=== PATIENT | male | born 1980 | race African-American/Black ===

== ENCOUNTER 2023-03-06 12:38 | Emergency (ER) | payer MEDICAID ==
[~2023-03-06] VITALS: Ht 175.3 cm; Wt 90.7 kg
[2023-03-06] MEDS ORDERED: HALOPERIDOL LACTATE 5 MG/ML VIAL IM ONE (12:45)
--- NOTE | 2023-03-06 12:50 | NUR ---
Patient to ER bed 6 to gown for evaluation. Side rails up. Report given to LIZBET VALENCIA.
--- NOTE | 2023-03-06 12:52 | NUR ---
42 yo/m [place] bus [place] w c/o 05/10 epigastric pain throbbing radiating up, down, to the sides and to back x several weeks intermitent, +n/v/d. pt reports he was seen at another hospital recently and discharged with antibiotics. pmh: anemia allergies: denies
[2023-03-06 12:56] VITALS: BP_SYST 151
[2023-03-06 13:12] LABS: BILIRUBIN,URINE NEGATIVE (NEGATIVE); BLOOD, URINE NEGATIVE (NEGATIVE); CLARITY/URINE CLEAR (CLEAR); COLOR,URINE YELLOW (YELLOW); GLUCOSE,URINE NEGATIVE (NEGATIVE); KETONES,URINE NEGATIVE (NEGATIVE); LEUKOCYTE ESTERASE ,URINE NEGATIVE (NEGATIVE); NITRITE, URINE NEGATIVE (NEGATIVE); PROTEIN URINE TRACE (NEGATIVE); UROBILINOGEN,URINE 0.2 (0.2-1.0)
[2023-03-06 13:21] LABS: BASOPHILS % (AUTO) 0.7 % (0.0-2.0); EOSINOPHILS # (AUTO) 0.1 K/uL (0.0-0.4); EOSINOPHILS % (AUTO) 1.1 % (0.0-4.0); HEMATOCRIT 42.8 % (36-54); HEMOGLOBIN 13.6 g/dL (14.0-18.0); LYMPHOCYTES # (AUTO) 1.3 K/uL (1.0-5.5); LYMPHOCYTES % (AUTO) 25.8 % (20.5-51.5); MEAN CORPUSCULAR HEMOGLOBIN 27 pg (27-31); MEAN CORPUSCULAR HGB CONC 32 % (32-36); MEAN CORPUSCULAR VOLUME 85 fL (79.0-98.0); MONOCYTES # (AUTO) 0.6 K/uL (0.0-1.0); MONOCYTES % (AUTO) 11.7 % (1.7-9.3); NEUTROPHILS # (AUTO) 3.1 K/uL (1.8-7.7); NEUTROPHILS % (AUTO) 60.7 % (40.0-70.0); PLATELET COUNT (AUTO) 312 K/uL (130-430); RED BLOOD CELL COUNT(AUTO) 5.05 MIL/uL (4.2-6.2); RED CELL DISTRIBUTION WIDTH 14.8 % (9.0-15.0); WHITE BLOOD COUNT (AUTO) 5.2 K/uL (4.8-10.8)
[2023-03-06 13:44] LABS: PROTHROMBIN TIME 10.4 SECS (9.5-12.5)
[2023-03-06 13:45] LABS: ANION GAP 8 (5-15); CALCIUM 9.4 mg/dL (8.4-11.0); CHLORIDE 108 mmol/L (98-107); CREATININE 1.16 mg/dL (0.55-1.30); GFR AFRICAN AMERICAN 88 mL/min (>90); GLUCOSE 104 mg/dL (70-99); UREA NITROGEN, BLOOD 16 mg/dL (8-21)
[2023-03-06 13:48] LABS: ALANINE AMINOTRANSFERASE 51 U/L (12-78); ALBUMIN 3.2 g/dL (3.4-4.8); ALCOHOL, BLOOD 3 mg/dL (<10); AMYLASE 47 U/L (0-100); ASPARTATE AMINOTRANSFERASE 22 U/L (10-37); C-REACTIVE PROTEIN QUANT 1.2 mg/dL (0-0.5); LACTATE DEHYDROGENASE 204 U/L (85-227); LIPASE 69 U/L (73-393); TOTAL BILIRUBIN 0.4 mg/dL (0.0-1.0)
[2023-03-06 13:49] LABS: ACETONE, SERUM NEGATIVE (NEGATIVE)
--- NOTE | 2023-03-06 14:47 | NUR ---
pt resting w eyes closed, breathing even and unlabored.
[2023-03-06] MEDS ORDERED: IBUP-1971 PO (15:12)
[2023-03-06] MEDS ORDERED: ONDA-8 TL (15:13)
[2023-03-06] MEDS ORDERED: BACITRACIN 1 GM OINT TP ONE (15:15)
--- NOTE | 2023-03-06 15:37 | NUR ---
pt reports pain has improved, no ongoing n/v/d.
[2023-03-06] MEDS ORDERED: ACET325T PO (16:30)
[2023-03-06 16:31] VITALS: BP_SYST 123
--- NOTE | 2023-03-06 16:32 | NUR ---
Patient given written and verbal discharge instructions and verbalizes understanding. ER MD discussed with patient the results and treatment provided. Patient in stable condition. ID arm band removed. IV catheter removed intact and dressing applied, no active bleeding. Rx of tylenol, zofran given. Patient educated on pain management and to follow up with PMD. Pain Scale 2/10. Opportunity for questions provided and answered. Medication side effect fact sheet provided.
== END 2023-03-06 16:32 | disposition home or self-care (01) ==
LOC: SED 12:38
DX: R10.11 Right upper quadrant pain (principal); N28.89 Other specified disorders of kidney and ureter; R11.10 Vomiting, unspecified; R19.7 Diarrhea, unspecified; Z79.899 Other long term (current) drug therapy
CPT/HCPCS: 99285; 74176; 80053; 82009; 82150; 83615; 83690; 85025; 85610; 85730; 86140; 84484; 36415; 73130; 76376; 96372; 83605; 81003; G0482; J1630

== ENCOUNTER 2023-06-14 17:22 | Emergency (ER) | payer MEDICAID ==
[~2023-06-14] VITALS: Ht 175.3 cm; Wt 99.8 kg
[~2023-06-14 17:22] MED LIST: ACET325T PO; ONDA-8 TL
[2023-06-14 17:39] VITALS: BP_SYST 136; PULSE 67; RESP 16; TEMP 97.7; O2SAT 97
== END 2023-06-14 22:45 | disposition left against medical advice (07) ==
LOC: SED 17:22
DX: R42 Dizziness and giddiness (principal); R11.2 Nausea with vomiting, unspecified; Z53.21 Procedure and treatment not carried out due to patient leaving prior to being seen by health care provider
CPT/HCPCS: 99281